=== PATIENT | female | born 1960 | race Caucasian/White ===

== ENCOUNTER → 2016-10-08 | Outpatient (CLI) | payer BC ==
[2016-10-08 09:11] LABS: FREE T4 1.22 NG/DL (0.76-1.46)
== END ==
LOC: M LAB 08:14
PROVIDERS: ATTEND Family Medicine
DX: E03.9 Hypothyroidism, unspecified (principal)

== ENCOUNTER → 2016-10-10 | Outpatient (REF) | payer BC | LOC: M SFHCPLAZ 08:28 | PROVIDERS: ATTEND Family Medicine | DX: E03.9 Hypothyroidism, unspecified (principal) ==

== ENCOUNTER → 2016-11-19 | Outpatient (CLI) | payer BC | LOC: M LAB 09:48 | PROVIDERS: ATTEND Family Medicine | DX: E03.9 Hypothyroidism, unspecified (principal) ==

== ENCOUNTER → 2017-05-04 | Outpatient (CLI) | payer BC ==
[2017-05-04 09:30] LABS: CREATININE FOR GFR 1.25 MG/DL (0.55-1.02); FREE T4 1.43 NG/DL (0.76-1.46); GLOMERULAR FILTRATION RATE 46.7 (>51); POTASSIUM SERUM 4.3 MEQ/L (3.5-5.1)
== END ==
LOC: M LAB 08:16
PROVIDERS: ATTEND Family Medicine
DX: E11.9 Type 2 diabetes mellitus without complications (principal)

== ENCOUNTER → 2017-06-09 | Outpatient (CLI) | payer BC ==
[2017-06-09 09:43] LABS: CALCIUM LEVEL 10.4 MG/DL (8.5-10.1); CREATININE FOR GFR 1.07 MG/DL (0.55-1.02); GLOMERULAR FILTRATION RATE 55.9 (>51); POTASSIUM SERUM 3.8 MEQ/L (3.5-5.1)
== END ==
LOC: M LAB 08:12
PROVIDERS: ATTEND Family Medicine
DX: I10 Essential (primary) hypertension (principal)

== ENCOUNTER → 2017-08-11 | Outpatient (CLI) | payer BC | LOC: M WHC 08:56 | DX: Z12.31 Encounter for screening mammogram for malignant neoplasm of breast (principal); R92.8 Other abnormal and inconclusive findings on diagnostic imaging of breast | CPT/HCPCS: 77067 ==

== ENCOUNTER → 2017-09-03 | Outpatient (CLI) | payer BC ==
[2017-09-03 10:36] LABS: ANION GAP 6 MEQ/L (8-16); BLOOD UREA NITROGEN 25 MG/DL (7-18); CALCIUM LEVEL 9.9 MG/DL (8.5-10.1); CARBON DIOXIDE LEVEL 28 MEQ/L (21-32); CHLORIDE LEVEL 108 MEQ/L (98-107); CREATININE FOR GFR 0.99 MG/DL (0.55-1.30); GLOMERULAR FILTRATION RATE > 60.0 (>51); GLUCOSE, FASTING 108 MG/DL (70-100); POTASSIUM SERUM 4.5 MEQ/L (3.5-5.1); SODIUM LEVEL 142 MEQ/L (136-145)
[2017-09-03 18:11] LABS: FREE T4 1.21 NG/DL (0.76-1.46)
== END ==
LOC: M LAB 09:06
DX: I10 Essential (primary) hypertension (principal); E03.9 Hypothyroidism, unspecified

== ENCOUNTER → 2018-05-10 | Outpatient (CLI) | payer BC ==
[2018-05-10 06:58] LABS: ESTIMATED AVERAGE GLUCOSE 151 MG/DL (60-110); HEMOGLOBIN A1c 6.9 %
[2018-05-10 07:23] LABS: ANION GAP 8 MEQ/L (8-16); BLOOD UREA NITROGEN 29 MG/DL (7-18); CALCIUM LEVEL 10.3 MG/DL (8.8-10.2); CARBON DIOXIDE LEVEL 26 MEQ/L (21-32); CHLORIDE LEVEL 105 MEQ/L (98-107); CREATININE FOR GFR 1.29 MG/DL (0.55-1.30); GLOMERULAR FILTRATION RATE 44.9 (>45); GLUCOSE, FASTING 111 MG/DL (70-100); POTASSIUM SERUM 3.7 MEQ/L (3.5-5.1); SODIUM LEVEL 139 MEQ/L (136-145)
[2018-05-10 09:52] LABS: TOTAL 25(OH) VITAMIN D 11.7 NG/ML (30.0-100.0)
== END ==
LOC: M LAB 06:25
DX: R53.83 Other fatigue (principal); I10 Essential (primary) hypertension
CPT/HCPCS: 84443

== ENCOUNTER → 2018-08-23 | Outpatient (CLI) | payer BC ==
[2018-08-23 08:45] LABS: MALB URINE SIEMENS 12.4 MG/L; MAU/CREAT RATIO 6.8 MCG/MG (0.0-30.0)
[2018-08-23 08:46] LABS: CALCIUM LEVEL 9.7 MG/DL (8.8-10.2); CREATININE FOR GFR 1.24 MG/DL (0.55-1.30); POTASSIUM SERUM 3.6 MEQ/L (3.5-5.1); THYROID STIMULATING HORMONE 7.33 uIU/ML (0.358-3.740)
== END ==
LOC: M LAB 07:44
PROVIDERS: ATTEND Family Medicine
DX: E11.9 Type 2 diabetes mellitus without complications (principal)

== ENCOUNTER → 2018-10-12 | Outpatient (CLI) | payer BC ==
[2018-10-12 07:49] LABS: CHOLESTEROL RISK RATIO 3.204 (<5)
[2018-10-12 08:42] LABS: HEMOGLOBIN A1c 7.1 %
== END ==
LOC: M LAB 06:55
PROVIDERS: ATTEND Family Medicine
DX: E11.9 Type 2 diabetes mellitus without complications (principal); E78.5 Hyperlipidemia, unspecified

== ENCOUNTER → 2018-10-26 | Outpatient (CLI) | payer BC ==
--- NOTE | 2018-10-27 05:28 | REP ---
Clinical: Abnormal ankle-brachial index. Technique: Real time smith scale and color Doppler evaluation of the bilateral lower extremity arterial vasculature using linear high frequency transducer. Findings: Right lower extremity demonstrates moderate atheromatous plaquing essentially normal triphasic arterial wave patterns and velocities and no evidence for focal occlusion. RIGHT VICKY: 1.1 Left lower extremity demonstrates severe diffuse atheromatous plaquing including visualized areas of stenosis involving the proximal/mid superficial femoral artery leading to occlusion at the mid superficial femoral artery with collateral genicular vessels revascularizing the distal femoral artery just above the knee with monophasic depressed wave patterns and velocities distal to the point of occlusion. LEFT VICKY: 0.8 Peak systolic velocities (cm/sec) RIGHT LEFT Common femoral artery 172 140 Profunda femoris 107 120 SFA (proximal) 150 112 SFA (mid) 168 occluded SFA (distal) 114 47 Popliteal artery 98.8 40.8 EDISON (prox.) 63.3 38.4 Tibioperoneal trunk 91.0 39.2 DRY MAN (prox.) 50.6 24.3 DRY MAN (distal) 86.0 36.8 EDISON (distal) 28.2 36.8 Impression: 1. 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 2. Moderate atherosclerotic changes to the right lower extremity without visualized stenosis or area of occlusion. Electronically Signed by Jorge Luis Levy MD 10/27/2018 05:19 A
== END ==
LOC: M RAD 12:46
PROVIDERS: ATTEND Family Medicine
DX: R68.89 Other general symptoms and signs (principal)

== ENCOUNTER → 2019-09-06 | Outpatient (REF) | payer BC | LOC: M SFHCWAGY 09:40 | PROVIDERS: ATTEND Nurse Practitioner Women's Health | DX: Z12.4 Encounter for screening for malignant neoplasm of cervix (principal) ==

== ENCOUNTER → 2019-09-06 | Outpatient (CLI) | payer BC ==
--- NOTE | 2019-09-06 09:41 | REPMRS ---
Patient History The patient states she had a clinical breast exam in 2019. Family history of ovarian cancer in paternal grandmother. Digital Woman Screen Mammo: September 06, 2019 - Exam #: [id number] Bilateral CC and MLO view(s) were taken. Technologist: Janelle Pickering, Technologist Prior study comparison: August 11, 2017, digital woman screen mammo performed at [facility]. March 20, 2016, digital woman screen mammo performed at [facility]. May 12, 2013, digital woman screen mammo performed at [facility]. FINDINGS: There are scattered fibroglandular densities. There has been no change in the appearance of the mammogram from the prior studies. There is a mild amount of scattered fibroglandular density which is fairly symmetric. There is no interval development of dominant mass, architectural distortion, or grouped microcalcification suggestive of malignancy. 3-D tomosynthesis shows no additional findings. Assessment: BI-RADS/ACR category 1 mammogram. Negative Mammogram. Recommendation Routine screening mammogram of both breasts in 1 year (for women over age 40). This patient's Lifetime Breast Cancer Risk is estimated at 7.2 %. This mammogram was interpreted with the aid of an FDA-approved computer-aided dectection system. Electronically Signed By: Josue Hummel MD 09/06/19 0940
== END ==
LOC: M WHC 08:20
PROVIDERS: ATTEND Nurse Practitioner Women's Health
DX: Z12.31 Encounter for screening mammogram for malignant neoplasm of breast (principal)

== ENCOUNTER → 2020-06-11 | Outpatient (CLI) | payer BC ==
[2020-06-11 11:53] LABS: HEMATOCRIT 43.3 % (36.0-47.0); HEMOGLOBIN 13.5 g/dl (12.0-15.5); MEAN CORPUSCULAR HEMOGLOBIN 28.3 pg (27.0-33.0); MEAN CORPUSCULAR HGB CONC 31.2 g/dl (32.0-36.5); MEAN CORPUSCULAR VOLUME 90.8 fl (80.0-96.0); PLATELET COUNT, AUTOMATED 279 10^3/uL (150-450); RED BLOOD COUNT 4.77 10^6/uL (4.00-5.40); WHITE BLOOD COUNT 8.4 10^3/uL (4.0-10.0)
[2020-06-11 12:30] LABS: ALBUMIN 3.6 GM/DL (3.2-5.2); BILIRUBIN,TOTAL 0.5 MG/DL (0.2-1.0); CALCIUM LEVEL 10.3 MG/DL (8.8-10.2); CREATININE FOR GFR 1.1 MG/DL (0.55-1.30); GLOMERULAR FILTRATION RATE 53.6 (>45); POTASSIUM SERUM 3.7 MEQ/L (3.5-5.1); THYROID STIMULATING HORMONE 5.98 uIU/ML (0.358-3.740); TOTAL 25(OH) VITAMIN D 16.6 NG/ML (30.0-100.0); TOTAL PROTEIN 7.9 GM/DL (6.4-8.2)
[2020-06-11 12:33] LABS: CREATININE, URINE 66.3 MG/DL; MALB URINE SIEMENS 6.3 MG/L; MAU/CREAT RATIO 9.5 MCG/MG (0.0-30.0)
[2020-06-11 17:41] LABS: HEMOGLOBIN A1c 7.9 %
== END ==
LOC: M LAB 11:04
PROVIDERS: ATTEND Family Medicine
DX: E55.9 Vitamin D deficiency, unspecified (principal); E03.9 Hypothyroidism, unspecified; E11.9 Type 2 diabetes mellitus without complications; I10 Essential (primary) hypertension

== ENCOUNTER → 2020-09-13 | Outpatient (CLI) | payer BC ==
[2020-09-13 07:14] LABS: HEMATOCRIT 41.5 % (36.0-47.0); HEMOGLOBIN 13.1 g/dl (12.0-15.5); MEAN CORPUSCULAR HEMOGLOBIN 28.6 pg (27.0-33.0); MEAN CORPUSCULAR HGB CONC 31.6 g/dl (32.0-36.5); MEAN CORPUSCULAR VOLUME 90.6 fl (80.0-96.0); PLATELET COUNT, AUTOMATED 256 10^3/uL (150-450); RED BLOOD COUNT 4.58 10^6/uL (4.00-5.40)
[2020-09-13 07:46] LABS: CALCIUM LEVEL 10.8 MG/DL (8.8-10.2); CREATININE FOR GFR 1.38 MG/DL (0.55-1.30); GLOMERULAR FILTRATION RATE 41.2 (>45); POTASSIUM SERUM 3.7 MEQ/L (3.5-5.1); THYROID STIMULATING HORMONE 1.58 uIU/ML (0.358-3.740)
[2020-09-13 09:18] LABS: HEMOGLOBIN A1c 7.2 %
== END ==
LOC: M LAB 06:42
PROVIDERS: ATTEND Family Medicine
DX: E03.9 Hypothyroidism, unspecified (principal); E11.9 Type 2 diabetes mellitus without complications; I10 Essential (primary) hypertension

== ENCOUNTER → 2020-09-17 | Outpatient (CLI) | payer BC ==
[2020-09-17 19:36] LABS: ALBUMIN 3.6 GM/DL (3.2-5.2); BILIRUBIN,TOTAL 0.3 MG/DL (0.2-1.0); CALCIUM LEVEL 10.8 MG/DL (8.8-10.2); CREATININE FOR GFR 1.57 MG/DL (0.55-1.30); GLOMERULAR FILTRATION RATE 35.5 (>45); POTASSIUM SERUM 3.7 MEQ/L (3.5-5.1); TOTAL PROTEIN 7.6 GM/DL (6.4-8.2)
[2020-09-17 19:44] LABS: TOTAL 25(OH) VITAMIN D 61.4 NG/ML (30.0-100.0)
== END ==
LOC: M LAB 15:58
PROVIDERS: ATTEND Family Medicine
DX: E55.9 Vitamin D deficiency, unspecified (principal)

== ENCOUNTER → 2020-09-17 | Outpatient (REF) | payer BC | LOC: M SFHCPLAZ 15:18 | PROVIDERS: ATTEND Family Medicine | DX: E83.52 Hypercalcemia (principal); E55.9 Vitamin D deficiency, unspecified ==

== ENCOUNTER → 2020-09-27 | Outpatient (CLI) | payer BC ==
[2020-09-27 09:37] LABS: CREATININE FOR GFR 1.38 MG/DL (0.55-1.30); GLOMERULAR FILTRATION RATE 41.2 (>45); POTASSIUM SERUM 4.1 MEQ/L (3.5-5.1)
== END ==
LOC: M LAB 08:21
PROVIDERS: ATTEND Family Medicine
DX: N17.9 Acute kidney failure, unspecified (principal)

== ENCOUNTER → 2020-10-03 | Outpatient (CLI) | payer BC | LOC: M LAB 15:43 | PROVIDERS: ATTEND Family Medicine | DX: E83.52 Hypercalcemia (principal) ==

== ENCOUNTER → 2020-10-09 | Outpatient (CLI) | payer BC ==
--- NOTE | 2020-10-09 12:08 | REPMRS ---
Patient History The patient states she has not had a clinical breast exam in over a year. Patient is postmenopausal. Family history of ovarian cancer in paternal grandmother. No Hormone Replacement Therapy Digital Woman Screen Mammo: October 09, 2020 - Exam #: [id number] Bilateral CC and MLO view(s) were taken. Technologist: Amrita Aj, Technologist Prior study comparison: September 06, 2019, bilateral digital woman screen mammo performed at [facility]. August 11, 2017, digital woman screen mammo performed at [facility]. March 20, 2016, digital woman screen mammo performed at [facility]. FINDINGS: The breast tissue is almost entirely fat. The Volpara volumetric breast density category is: A. There has been no change in the appearance of the mammogram from the prior studies. There is no interval development of dominant mass, architectural distortion, or grouped microcalcification typical of malignancy. 3-D tomosynthesis shows no additional findings. Assessment: BI-RADS/ACR category 1 mammogram. Negative Mammogram. Recommendation Routine screening mammogram of both breasts in 1 year (for women over age 40). This patient's [facility] Lifetime Breast Cancer RIsk is estimated at 6.9 %. This mammogram was interpreted with the aid of an FDA-approved computer-aided dectection system. Electronically Signed By: Josue Hummel MD 10/09/20 [id number]
== END ==
LOC: M WHC 10:16
PROVIDERS: ATTEND Family Medicine
DX: Z12.31 Encounter for screening mammogram for malignant neoplasm of breast (principal)

== ENCOUNTER → 2020-10-22 | Outpatient (CLI) | payer BC ==
--- NOTE | 2020-10-22 18:08 | DEXAMM ---
INDICATION: HYPERPARATHYROIDISM/E21.0. COMPARISON: None. TECHNIQUE: Bone density was measured using dual-energy x-ray absorptiometry (DEXA). FINDINGS: AP SPINE L1-L4 BMD 1.206 g/cm2 Young Adult T-Score 0.1 Age Matched Z-Score 1.5. LT FEMUR, TOTAL BMD 0.918 g/cm2 Young Adult T-Score -0.7 Age Matched Z-Score 0.3. LT NECK BMD 0.829 g/cm2 Young Adult T-Score -1.5 Age Matched Z-Score -0.2. RT FEMUR, TOTAL BMD 0.820 g/cm2 Young Adult T-Score -1.5 Age Matched Z-Score -0.4. RT NECK BMD 0.828 g/cm2 Young Adult T-Score -1.5 Age Matched Z-Score -0.2. IMPRESSION: There is normal bone density of the spine. There is low bone density of the left hip. There is low bone density of the right hip. FOLLOW-UP: Recommendation for the next bone density exam: 2 years. <Electronically signed by Miguel bOrien > 10/22/20 0000
== END ==
LOC: M WHC 15:13
PROVIDERS: ATTEND Family Medicine
DX: E21.0 Primary hyperparathyroidism (principal); M85.88 Other specified disorders of bone density and structure, other site

== ENCOUNTER → 2020-12-19 | Outpatient (CLI) | payer BC ==
[2020-12-19 08:54] LABS: CALCIUM LEVEL 10.4 MG/DL (8.8-10.2); CREATININE FOR GFR 1.27 MG/DL (0.55-1.30); GLOMERULAR FILTRATION RATE 45.4 (>45); POTASSIUM SERUM 4.4 MEQ/L (3.5-5.1)
[2020-12-19 09:16] LABS: CALCIUM,RANDOM URINE 15.5 MG/DL; CREATININE,RANDOM URINE 78.9 MG/DL
== END ==
LOC: M LAB 07:55
PROVIDERS: ATTEND Student in an Organized Health Care Education/Training Program
DX: E21.0 Primary hyperparathyroidism (principal)

== ENCOUNTER → 2021-05-23 | Outpatient (CLI) | payer BC ==
[2021-05-23 09:06] LABS: CALCIUM LEVEL 8.6 MG/DL (8.8-10.2); CHOLESTEROL RISK RATIO 5.394 (<5); CREATININE FOR GFR 1.23 MG/DL (0.55-1.30); GLOMERULAR FILTRATION RATE 46.9 (>45); POTASSIUM SERUM 3.9 MEQ/L (3.5-5.1); THYROID STIMULATING HORMONE 28.9 uIU/ML (0.358-3.740)
[2021-05-23 11:40] LABS: CREATININE, URINE 78.3 MG/DL; MALB URINE SIEMENS 15.7 MG/L
== END ==
LOC: M LAB 07:37
PROVIDERS: ATTEND Student in an Organized Health Care Education/Training Program
DX: E03.9 Hypothyroidism, unspecified (principal); E11.9 Type 2 diabetes mellitus without complications; E78.00 Pure hypercholesterolemia, unspecified; E21.0 Primary hyperparathyroidism

== ENCOUNTER → 2021-06-27 | Outpatient (CLI) | payer BC | LOC: M LAB 08:17 | PROVIDERS: ATTEND Student in an Organized Health Care Education/Training Program | DX: E03.9 Hypothyroidism, unspecified (principal) ==

== ENCOUNTER → 2021-08-12 | Outpatient (CLI) | payer BC ==
[2021-08-12 15:48] LABS: FREE T4 1.33 NG/DL (0.76-1.46); THYROID STIMULATING HORMONE 12.1 uIU/ML (0.358-3.740)
== END ==
LOC: M PLALAB 12:31
PROVIDERS: ATTEND Student in an Organized Health Care Education/Training Program
DX: E03.9 Hypothyroidism, unspecified (principal)

== ENCOUNTER → 2021-10-07 | Outpatient (CLI) | payer BC | LOC: M WHC 14:49 | PROVIDERS: ATTEND Student in an Organized Health Care Education/Training Program | DX: Z12.31 Encounter for screening mammogram for malignant neoplasm of breast (principal) ==

== ENCOUNTER → 2021-11-10 | Outpatient (REF) | payer BC | LOC: M LAB REF 11:43 | PROVIDERS: ATTEND Physician Assistant | DX: R05.9 Cough, unspecified (principal); R53.83 Other fatigue ==

== ENCOUNTER → 2022-05-07 | Outpatient (CLI) | payer BC ==
[2022-05-07 11:16] LABS: CALCIUM,RANDOM URINE < 5.0 MG/DL; CREATININE, URINE 76.4 MG/DL; MALB URINE SIEMENS 29.5 MG/L; MAU/CREAT RATIO 38.6 MCG/MG (0.0-30.0)
[2022-05-07 11:18] LABS: ALBUMIN 3.4 GM/DL (3.2-5.2); BILIRUBIN,TOTAL 0.7 MG/DL (0.2-1.0); CHOLESTEROL RISK RATIO 3.586 (<5); CREATININE FOR GFR 1.33 MG/DL (0.55-1.30); GLOMERULAR FILTRATION RATE 42.8 (>45); POTASSIUM SERUM 4.7 MEQ/L (3.5-5.1); THYROID STIMULATING HORMONE 8.7 uIU/ML (0.358-3.740); TOTAL PROTEIN 7.4 GM/DL (6.4-8.2)
[2022-05-07 11:50] LABS: TOTAL 25(OH) VITAMIN D 21.7 NG/ML (30.0-100.0)
== END ==
LOC: M PLALAB 08:39
PROVIDERS: ATTEND Family Medicine
DX: E55.9 Vitamin D deficiency, unspecified (principal); E11.9 Type 2 diabetes mellitus without complications; I10 Essential (primary) hypertension; E78.5 Hyperlipidemia, unspecified; E03.9 Hypothyroidism, unspecified

== ENCOUNTER → 2023-10-30 | Outpatient (CLI) | payer MEDICARE, MEDICAID ==
[2023-10-30 12:01] LABS: HEMATOCRIT 46.9 % (36.0-47.0); HEMOGLOBIN 14.7 g/dl (12.0-15.5); MEAN CORPUSCULAR HEMOGLOBIN 28.8 pg (27.0-33.0); MEAN CORPUSCULAR HGB CONC 31.3 g/dl (32.0-36.5); PLATELET COUNT, AUTOMATED 263 10^3/uL (150-450); THYROID STIMULATING HORMONE 4.402 uIU/ML (0.55-4.78); TOTAL 25(OH) VITAMIN D 15.3 NG/ML (20.0-100.0); WHITE BLOOD COUNT 9.3 10^3/uL (4.0-10.0)
[2023-10-30 12:02] LABS: ALBUMIN 3.4 G/DL (3.2-5.2); BILIRUBIN,TOTAL 0.5 MG/DL (0.3-1.2); CALCIUM LEVEL 9.3 MG/DL (8.3-10.6); CHOLESTEROL RISK RATIO 4.39 (<5); CREATININE FOR GFR 1.1 MG/DL (0.55-1.30); FREE T4 1.34 NG/DL (0.89-1.76); GLOMERULAR FILTRATION RATE 53.1 (>45); HDL CHOLESTEROL 34.8 MG/DL (>40); LDL CHOLESTEROL 94.6 MG/DL (<100); NON-HDL-C 118.2 MG/DL; POTASSIUM SERUM 4.2 MMOL/L (3.5-5.1); TOTAL PROTEIN 7.1 G/DL (5.7-8.2)
== END ==
LOC: M PLALAB 07:19
PROVIDERS: ATTEND Student in an Organized Health Care Education/Training Program
DX: E21.0 Primary hyperparathyroidism (principal); E11.9 Type 2 diabetes mellitus without complications; I10 Essential (primary) hypertension; E78.5 Hyperlipidemia, unspecified

== ENCOUNTER → 2023-11-02 | Outpatient (CLI) | payer MEDICARE, MEDICAID | LOC: M WHC 16:02 | PROVIDERS: ATTEND Student in an Organized Health Care Education/Training Program | DX: Z12.31 Encounter for screening mammogram for malignant neoplasm of breast (principal) ==

== ENCOUNTER → 2024-01-11 | Outpatient (CLI) | payer OTHER, MEDICAID | LOC: M WHC 07:32 | PROVIDERS: ATTEND Student in an Organized Health Care Education/Training Program | DX: Z12.31 Encounter for screening mammogram for malignant neoplasm of breast (principal); R92.313 Mammographic fatty tissue density, bilateral breasts ==

== ENCOUNTER → 2024-04-15 | Outpatient (REF) | payer MEDICARE, MEDICAID | LOC: M SFHCPLAZ 20:58 | PROVIDERS: ATTEND Family Medicine | DX: E78.5 Hyperlipidemia, unspecified (principal); E55.9 Vitamin D deficiency, unspecified; I10 Essential (primary) hypertension ==

== ENCOUNTER → 2024-05-19 | Outpatient (CLI) | payer OTHER, MEDICAID | LOC: M PLAIMG 08:28 | PROVIDERS: ATTEND Student in an Organized Health Care Education/Training Program | DX: R10.2 Pelvic and perineal pain (principal); I27.20 Pulmonary hypertension, unspecified; I35.8 Other nonrheumatic aortic valve disorders; I35.1 Nonrheumatic aortic (valve) insufficiency ==

== ENCOUNTER 2024-10-28 18:52 | Emergency (ER) | payer OTHER, MEDICAID ==
[2024-10-28] VITALS (7 sets, daily range): BP systolic 135–185; BP diastolic 63–86; TEMP 97.4; O2SAT 90–96
[~2024-10-28] VITALS: Ht 172.7 cm; Wt 99.0 kg
[2024-10-28] MEDS ORDERED: ISOVUE-370 76% 100ML VIAL As Ordered ONE (19:02)
[2024-10-28 19:26] LABS: HEMATOCRIT 48.4 % (36.0-47.0); HEMOGLOBIN 15.2 g/dl (12.0-15.5); MEAN CORPUSCULAR HEMOGLOBIN 28.2 pg (27.0-33.0); MEAN CORPUSCULAR HGB CONC 31.4 g/dl (32.0-36.5); MEAN CORPUSCULAR VOLUME 89.8 fl (80.0-96.0); PLATELET COUNT, AUTOMATED 315 10^3/uL (150-450); RED BLOOD COUNT 5.39 10^6/uL (4.00-5.40); WHITE BLOOD COUNT 15.6 10^3/uL (4.0-10.0)
[2024-10-28 19:42] LABS: INR 0.96; PARTIAL THROMBOPLASTIN TIME 25.4 SECONDS (24.8-34.2); PROTHROMBIN TIME 13.1 SECONDS (12.5-14.5)
[2024-10-28 19:49] LABS: CK-MB VALUE MASS < 1.0 NG/ML (<3.6)
[2024-10-28 19:51] LABS: ALBUMIN 3.5 G/DL (3.2-5.2); ALKALINE PHOSPHATASE 123 U/L (35-104); ALT/SGPT 28 U/L (7.0-40); AST/SGOT 18 U/L (<34); BILIRUBIN,DIRECT 0.1 MG/DL (<0.4); BILIRUBIN,TOTAL 0.5 MG/DL (0.3-1.2); BLOOD UREA NITROGEN 12 MG/DL (9-23); CALCIUM LEVEL 9.2 MG/DL (8.3-10.6); CARBON DIOXIDE LEVEL 22 MMOL/L (20-31); CHLORIDE LEVEL 107 MMOL/L (98-107); CREATININE FOR GFR 1.03 MG/DL (0.55-1.30); GLUCOSE, FASTING 167 MG/DL (74-106); POTASSIUM SERUM 4.2 MMOL/L (3.5-5.1); SODIUM LEVEL 144 MMOL/L (136-145); TOTAL PROTEIN 7.7 G/DL (5.7-8.2)
[2024-10-28 19:52] LABS: CPK CREATINE PHOSPHOKINASE 106 U/L (34-145); MB/CK RELATIVE INDEX 0.94 (< OR =4)
[2024-10-28 19:52] LABS: ATYPICAL LYMPH 2 % (0-5); EOSINOPHILS 1 % (0-3); LYMPHOCYTES 32 % (16-44); MONOCYTES 5 % (0-5); NEUTROPHILS 60 % (28-66); PLATELET CLUMPS SMALL AMT; PLATELET ESTIMATE NORMAL (NORMAL)
[2024-10-28] MEDS: SODIUM CHLORIDE 0.9% INJ 10 ML SYR IV ONE ×2 (20:06)
[2024-10-28] MEDS: TENECTEPLASE 50 MG/10 ML VIAL IVP ONE (20:06)
[2024-10-28] MEDS: ONDANSETRON 4MG 2ML VIAL IV ONE (20:14)
[2024-10-28] MEDS ORDERED: ATOR80TA59 PO (20:49)
[2024-10-28] MEDS ORDERED: LOSA100T46 PO (20:49)
[2024-10-28] MEDS ORDERED: AMLO1TAB24 PO (20:49)
[2024-10-28] MEDS ORDERED: FARX1TAB3 PO (20:49)
[2024-10-28] MEDS ORDERED: LEVO150T7 PO (20:49)
[2024-10-28] MEDS ORDERED: METF10004 PO (20:49)
[2024-10-28] MEDS ORDERED: HOME MED LIST COMPLETE! XX SCH (20:50)
== END 2024-10-28 23:05 | disposition short-term general hospital (02) ==
LOC: M ED 18:52 → M ED INP 21:47 → UNDOADMIN 21:47 → M ED 23:05
DX: I63.9 Cerebral infarction, unspecified (principal); R29.704 NIHSS score 4; I10 Essential (primary) hypertension; E11.9 Type 2 diabetes mellitus without complications; E03.9 Hypothyroidism, unspecified; Z87.891 Personal history of nicotine dependence; R94.31 Abnormal electrocardiogram [ECG] [EKG]; Z79.899 Other long term (current) drug therapy
CPT/HCPCS: 70450; 70496; 70498; 70544; 70551; 71045; 80047; 80048; 80076; 82550; 82553; 84484; 85025; 85610; 85730; 93005; 93041; 94760; 96374; 96375; 99291; J2405; J3101; Q9967

== ENCOUNTER → 2025-02-02 | Outpatient (CLI) | payer OTHER, MEDICAID ==
[~2025-02-02] MED LIST: AMLO1TAB24 PO; ATOR80TA59 PO; FARX1TAB3 PO; LEVO150T7 PO; LOSA100T46 PO; METF10004 PO
[2025-02-02 11:25] LABS: BASO # 0.1 10^3/uL (0.0-0.2); BASO % 0.5 % (0.0-1.0); EOS # 0.4 10^3/uL (0.0-0.5); EOS % 3.7 % (0.0-3.0); LYMPH # 3.1 10^3/uL (1.5-5.0); LYMPH % 31.7 % (24.0-44.0); MONO # 0.7 10^3/uL (0.0-0.8); MONO % 6.7 % (2.0-8.0); NEUTROPHILS # 5.6 10^3/uL (1.5-8.5); NEUTROPHILS % 57.2 % (36.0-66.0); PLATELET COUNT, AUTOMATED 293 10^3/uL (150-450)
[2025-02-02 11:27] LABS: ALT/SGPT 32.0 U/L (7.0-40); AST/SGOT 23.0 U/L (<34); CALCIUM LEVEL 9.3 MG/DL (8.3-10.6); CARBON DIOXIDE LEVEL 27.0 MMOL/L (20-31); CHLORIDE LEVEL 103.0 MMOL/L (98-107); CHOLESTEROL LEVEL 161.0 MG/DL (<200); CHOLESTEROL RISK RATIO 4.48 (<5); CREATININE FOR GFR 0.98 MG/DL (0.55-1.30); GLOMERULAR FILTRATION RATE 63.7 (>45); LDL CHOLESTEROL 90.5 MG/DL (<100); NON-HDL-C 125.1 MG/DL; POTASSIUM SERUM 4.5 MMOL/L (3.5-5.1); SODIUM LEVEL 143.0 MMOL/L (136-145); TRIGLYCERIDES LEVEL 173.0 MG/DL (<150)
[2025-02-02 11:56] LABS: ESTIMATED AVERAGE GLUCOSE 148.0 MG/DL (60-110)
== END ==
LOC: M PLALAB 08:10
PROVIDERS: ATTEND Student in an Organized Health Care Education/Training Program
DX: Z00.00 Encounter for general adult medical examination without abnormal findings (principal); I63.9 Cerebral infarction, unspecified; I10 Essential (primary) hypertension; Z79.899 Other long term (current) drug therapy

== ENCOUNTER → 2025-03-23 | Outpatient (REF) | payer OTHER, MEDICAID ==
[2025-03-24 17:12] LABS: BVAB 2 NEGATIVE (NEGATIVE)
[2025-03-24 17:33] LABS: CANDIDA GLABRATA NAA NOT DETECTED (NOT DETECTED); TRICH VAG BY NAA NOT DETECTED (NOT DETECTED)
[2025-03-24 17:47] LABS: CHLAMYDIA TRACHOMATIS NAA NOT DETECTED (NOT DETECTED)
== END ==
LOC: M SFHCPLAZ 12:58
DX: R39.9 Unspecified symptoms and signs involving the genitourinary system (principal); N89.8 Other specified noninflammatory disorders of vagina

== ENCOUNTER → 2025-03-31 | Outpatient (CLI) | payer OTHER, MEDICAID ==
[2025-03-31 14:11] LABS: CHOLESTEROL LEVEL 147.0 MG/DL (<200); CHOLESTEROL RISK RATIO 3.94 (<5); LDL CHOLESTEROL 78.9 MG/DL (<100); NON-HDL-C 109.7 MG/DL; TRIGLYCERIDES LEVEL 154.0 MG/DL (<150)
== END ==
LOC: M PLALAB 08:55
PROVIDERS: ATTEND Student in an Organized Health Care Education/Training Program
DX: E78.5 Hyperlipidemia, unspecified (principal)

== ENCOUNTER → 2025-06-26 | Outpatient (CLI) | payer OTHER, MEDICAID ==
[2025-06-26 17:19] LABS: CREATININE FOR GFR 1.06 MG/DL (0.55-1.30); GLOMERULAR FILTRATION RATE 57.6 (>45)
== END ==
LOC: M PLALAB 15:01
PROVIDERS: ATTEND Psychiatry & Neurology Neurology
DX: I10 Essential (primary) hypertension (principal)